=== PATIENT | female | born 2000 | race Caucasian/White ===

== ENCOUNTER → 2021-05-05 01:31 | Outpatient (CLI) | payer OTHER, SELFPAY ==
[2021-05-06 20:43] LABS: SARS-CoV-2 RNA PCR Negative
== END ==
PROVIDERS: PCP Family Medicine; Visit Provider Family Medicine
DX: J01.90 Acute sinusitis, unspecified (principal); Z20.822 Contact with and (suspected) exposure to COVID-19
CPT/HCPCS: C9803; U0003; U0005

== ENCOUNTER 2024-05-06 06:43 | Outpatient (RCR) | payer OTHER, SELFPAY ==
[2024-05-04 12:24] LABS: Glucose 1 Hour PP 50gm Dose 116 mg/dL
[2024-05-04 12:41] LABS: Hemoglobin A1C 4.6 % (<5.7)
[2024-05-04 13:00] LABS: Vitamin D 25 Hydroxy 40.7 ng/mL
[2024-05-04 13:05] LABS: HIV 1/2 Ab P24 Ag Result Negative (Negative)
[2024-05-05 12:11] LABS: Rapid Plasma Reagin Non-Reactive (NonReactive)
[2024-05-06] MEDS: RHO(D) IMMUNE GLOBULIN 300 MCG/2 ML SYRINGE IM (17:06)
== END 2024-05-06 07:00 | disposition home or self-care (01) ==
LOC: ANHLAB 06:43
PROVIDERS: PCP Nurse Practitioner Family; Visit Provider Obstetrics & Gynecology Gynecology
DX: Z29.13 Encounter for prophylactic Rho(D) immune globulin (principal); O36.0130 Maternal care for anti-D [Rh] antibodies, third trimester, not applicable or unspecified; Z11.4 Encounter for screening for human immunodeficiency virus [HIV]; Z11.3 Encounter for screening for infections with a predominantly sexual mode of transmission; E55.9 Vitamin D deficiency, unspecified; Z3A.00 Weeks of gestation of pregnancy not specified
CPT/HCPCS: 36415; 82306; 82947; 83036; 85461; 86592; 86703; 86850; 86900; 86901; 90384; 96372; G0432; J2790

== ENCOUNTER 2024-07-05 05:00 | Inpatient (IN) | payer OTHER, SELFPAY ==
[2024-07-05] VITALS (175 sets, daily range): BP systolic 76–156; BP diastolic 32–104; PULSE 58–157; TEMP 36.2–36.9; O2SAT 95–100; BMI 36.2
[2024-07-05 05:42] LABS: Basophils Percent Auto 0.3 % (0.2-1.2); Eosinophils Absolute Auto 0.2 K/mm3 (0-0.3); Eosinophils Percent Auto 1.8 % (0-4.4); Hematocrit 35.9 % (37.0-47.0); Hemoglobin 12.5 g/dL (12.0-15.0); Immature Granulocyte Absolute 0.06 K/mm3 (0.00-0.031); Immature Granulocyte Percent A 0.6 % (0-0.5); Lymphocytes Absolute Auto 2.61 K/mm3 (0.9-3.2); Lymphocytes Percent Auto 24.1 % (18.3-44.2); Mean Corpuscular HGB Conc 34.8 g/dl (32-36); Mean Corpuscular Hemoglobin 29.8 pg (26-34); Mean Corpuscular Volume 85.7 fl (80-100); Mean Platelet Volume 10.6 fl (7.4-10.4); Monocytes Absolute Auto 0.7 K/mm3 (0.1-0.6); Neutrophils Absolute Auto 7.3 K/mm3 (1.3-6.7); Neutrophils Percent Auto 67.2 % (45.5-73.1); Platelet Count Result 281 k/mm3 (150-375); Red Blood Count 4.19 M/mm3 (4.2-5.4); Red Cell Distribution Width 14.3 % (11.5-14.5); White Blood Count 10.9 K/mm3 (4.5-10.0)
--- NOTE | 2024-07-05 05:42 | LDADM ---
This patient, Sarah Beth Monaco, was admitted to Labor/Delivery/Recovery 105 on 07/05/24 at 05:00. Plans for labor, pain management and were discussed with patient. Patient/family oriented to hospital policies and general routines including ID bracelet, bed and alarms, visiting hours, pain management, procedures, bathroom and other care routines, personal items, smoking policy, room service/diet and guest tray routines, security routines, and visiting hours. Patient/Family are encouraged to report perceived risks to care and to ask questions if they do not understand what they are told or what they should do. See OBIX for further documentation.
[2024-07-05 05:59] LABS: Rapid Plasma Reagin Non-Reactive (NonReactive)
[2024-07-05] MEDS: LACTATED RINGERS 1,000 ML 125 ML IV CONT ×4 (06:05→21:52)
[2024-07-05] MEDS: OXYTOCIN 30 UNITS/NS 500 ML 30 UNITS/500 ML BAG 6 UNITS IV CONT (06:05)
[2024-07-05 06:34] LABS: HIV 1/2 Ab P24 Ag Result Negative (Negative)
--- NOTE | 2024-07-05 11:14 | WPDOBADMIT ---
Obstetrics - Admit Note Admission Note: record reviewed. No pertinent additions to the history and/or any subsequent changes in the physical findings that are not consistent with the expected course of the were found. Additions to the history and/or subsequent changes in the physical findings follow. Here for MIL for asymmetric growth with head sparing. Cervix now 5/70/-2 anterior. AROM with clear fluid. IUPC place. FHTs category I. Pitocin per protocol.
[2024-07-05] MEDS: CALCIUM CARBONATE (TUMS) 500 MG (200 MG ELEMENTAL) PO (11:24)
--- NOTE | 2024-07-05 13:30 | P.PNAN_ITS ---
Anes - Initial Pre Proc Eval Procedure: labor epidural Date/Time: 07/05/24 13:30 Surgeon: Duyen Rizo MD Pre Op Diagnosis: labor pain Pre Op Diagnosis: IOL Patient Data Age: 23 Gender: F Height: 1.7 m Weight: 105 kg Last Vital Signs Temp 36.3 C L 07/05/24 12:30 Pulse 82 07/05/24 13:15 BP 134/83 07/05/24 13:15 Pulse Ox 98 07/05/24 13:27 O2 Del Method Room Air 07/05/24 05:41 Allergies Allergy/AdvReac Type Severity Reaction Status Date / Time No Known Allergies Allergy Verified 06/18/24 15:29 Home Medications Medication Instructions Recorded Confirmed Type sertraline 25 mg tablet 25 mg PO DAILY #30 tabs 02/16/23 06/18/24 Rx sertraline 50 mg tablet 50 mg PO DAILY #30 tabs 02/21/24 06/18/24 Rx aspirin 81 mg tablet 81 mg PO DAILY 06/18/24 06/18/24 History cholecalciferol (vitamin D3) 125 250 mcg PO DAILY 06/18/24 07/05/24 History mcg (5,000 unit) tablet (Vitamin D3) vits no.126-ferrous fum 1 tablet PO DAILY 06/18/24 06/18/24 History 28 mg iron-folic acid 800 mcg tablet (Classic ) diphenhydramine HCl 50 mg/30 mL 50 mg PO HS PRN Sleep 07/05/24 07/05/24 History oral liquid pyridoxine (vitamin B6) 100 mg 100 mg PO DAILY 07/05/24 07/05/24 History tablet Laboratory Tests 07/05/24 05:13 WBC 10.9 H K/mm3 (4.5-10.0) RBC 4.19 L M/mm3 (4.2-5.4) Hgb 12.5 g/dL (12.0-15.0) Hct 35.9 L % (37.0-47.0) MCV 85.7 fl (80-100) MCH 29.8 pg (26-34) MCHC 34.8 g/dl (32-36) RDW 14.3 % (11.5-14.5) Plt Count 281 k/mm3 (150-375) MPV 10.6 H fl (7.4-10.4) Immature Gran % (Auto) 0.6 H % (0-0.5) Neut % (Auto) 67.2 % (45.5-73.1) Lymph % (Auto) 24.1 % (18.3-44.2) [place] % (Auto) 6.0 % (2.6-8.5) Eos % (Auto) 1.8 % (0-4.4) Baso % (Auto) 0.3 % (0.2-1.2) Lymph # (Auto) 2.61 K/mm3 (0.9-3.2) [place] # (Auto) 0.7 H K/mm3 (0.1-0.6) Eos # (Auto) 0.2 K/mm3 (0-0.3) Baso # (Auto) 0.0 K/mm3 (0.0-0.1) Abs Immat Gran (auto) 0.06 H K/mm3 (0.00-0.031) Absolute Neuts (auto) 7.3 H K/mm3 (1.3-6.7) Absolute Nucleated RBC 0.000 K/mm3 (0.0-0.012) Nucleated RBC % 0.0 % (0.0-0.2) RPR Non-reactive (NonReactive) HIV 1&2 Ab/P24 Ag 4thGn Negative (Negative) Blood Type A Negative Antibody Screen Positive Antibody Identification Passive Due to RH Imm Glob Antigen Identification TNP KEILA, IgG Interpret Neg KEILA, Poly Interpret Not Performed KEILA, Complement Interp Negative Patient hx anesthesia problems: none Family hx anesthesia problems: none Results Review: All pre-operative results and documents have been reviewed as part of the pre- operative evaluation. [facility] Past Medical History Medical History (Updated 06/05/23 @ 15:12 by Kirill Collado MD) Acute sinusitis, unspecified Allergic rhinitis Allergies Anxiety BMI 31.0-31.9,adult BMI 32.0-32.9,adult COVID-19 (06/04/23) Encounter to establish care Fatigue Influenza-like illness Lumbago Screening for diabetes mellitus Sprain of ankle, left Vitamin D deficiency Family History Family History (Updated 06/18/24 @ 15:36 by Brandi Santana RN) Father Heart disease Hypertension Thyroid disorder Pancreatitis Mother Hypertension Asthma Sibling Asthma Grandparent Diabetes mellitus Grandparent Diabetes mellitus Cerebrovascular accident Social History Social History Smoking status: Never smoker Second hand tobacco smoke exposure: No Alcohol intake: current Alcohol use details: socially Substance use: never Substance use type: does not use Do You Feel Safe in your Home?: Yes Lack of Transportation: No Lack of Food: Never True Current Housing: I Have Housing Concerned About Future Housing: No Difficulty Paying Gas/Electric Bills: No Difficulty Paying for Meds: No Currently Unemployed: No Education: Master's Degree or Higher Difficulty w/ Childcare or Family Care: No Spiritual care concerns: No Anes - Eval Final PreProcedure Day of Procedure 07/05/24 13:30 Patient weight: obese ASA classification: II Anesthetic plan: proceed Anesthesia type and monitoring: regional epidural and standard monitoring Results Review: All pre-operative results and documents have been reviewed as part of the pre- operative evaluation. Informed Consent: The patient's anesthetic plan and its attendant risks and benefits were discus sed with the patient/family/POA. Questions were solicited and answers provided to the satisfaction of the patient/family/POA.
--- NOTE | 2024-07-05 17:35 | P.PCNOB_ITS ---
OB - Vaginal Delivery Note Procedure Delivery date: 07/05/24 Events: Other (Asymmetric growth) Induction method: AROM and Per Pitocin Protocol Delivery monitor: External FHT and Internal Uterine Route of delivery: Episiotomy description: None Laceration Description: Periurethral (supraurethral 2nd degree) and Perineal - 2nd Degree Delivery repair: vicryl (3-0) Specimen: Yes (placenta) Quantitative Blood Loss (ml): 780 Anesthesia type: Epidural Disposition: Floor Complications: No immediate complications Narrative: The patient's laceration was above the urethra and very brisk bleeding. Most of the estimated blood loss is from the laceration. It was very difficult to visualize the urethra. A red rubber catheter was placed and the laceration above the urethra was repaired with 3-0 Vicryl on a sh needle . Once this bleeding was controlled, the patient had no further bleeding. [place] Baby Date of : 07/05/24 Gestational Age by Date: 38 (38 6/7) Infant gender: Female Weight (pounds): 6 Weight (ounces): 7 presentation: vertex position: Right Occiput Anterior Placenta delivery description: Spontaneous Cord Vessel Description: 3 Vessels and Delayed Cord Clamping score one minute: 9 score five minutes: 9
--- NOTE | 2024-07-05 17:38 | P.DS_ITS ---
DS: Admitting Diagnosis Discharge Date 07/07/24 Admitting Diagnosis IUP 38 6/7 wks Asymmetric growth DS: Discharge Diagnosis Discharge Diagnosis (1) (normal spontaneous vaginal delivery): Code(s): O80 - Encounter for full-term uncomplicated delivery Status: Acute (2) Anemia: Code(s): D64.9 - Anemia, unspecified Status: Acute Assessment and Plan: secondary to laceration OB - DS: Summary OB Procedures : NST and Ultrasound OB Procedures Intrapartum: Spontaneous Vag Delivery OB Procedures: : None Peripartum Data Infant Delivery Method: Natural Vaginal Laceration Description: Periurethral (supraurethral 2nd degree) and Perineal - 2nd Degree Episiotomy description: None complications: none Status at Discharge Functional status at discharge: independent ambulation Overall status at discharge: patient is progressing back to baseline Time Spent with Patient Time attestation: Total time spent providing and/or coordinating discharge services: DS: Data Data Completed and Pending Labs on day of discharge: Labs from last 24 hours 07/05/24 05:13 WBC 10.9 H RBC 4.19 L Hgb 12.5 Hct 35.9 L MCV 85.7 MCH 29.8 MCHC 34.8 RDW 14.3 Plt Count 281 MPV 10.6 H Immature Gran % (Auto) 0.6 H Neut % (Auto) 67.2 Lymph % (Auto) 24.1 [place] % (Auto) 6.0 Eos % (Auto) 1.8 Baso % (Auto) 0.3 Lymph # (Auto) 2.61 [place] # (Auto) 0.7 H Eos # (Auto) 0.2 Baso # (Auto) 0.0 Abs Immat Gran (auto) 0.06 H Absolute Neuts (auto) 7.3 H Absolute Nucleated RBC 0.000 Nucleated RBC % 0.0 RPR Non-reactive HIV 1&2 Ab/P24 Ag 4thGn Negative Blood Type A Negative Antibody Screen Positive Antibody Identification Passive Due to RH Imm Glob Antigen Identification TNP KEILA, IgG Interpret Neg KEILA, Poly Interpret Not Performed KEILA, Complement Interp Negative Discharge Plan Discharge Attending physician on discharge: Duyen Rizo Discharging Clinician: Duyen Rizo Anticipated Discharge Date/Time: 07/07/24 17:39 Patient Disposition: Home, Self-Care Activity: may shower and pelvic rest Diet: regular Discharge Instructions: Education: Mom and Baby Guide Given to: Mother Follow-Up: Call your delivering provider's office for an appointment to be seen in: 6 Weeks Mom and baby should come to the [facility] for the follow-up appointment. Appointment Date/Time: July 08, 2024 at 3:30 pm What to expect at your follow-up visit: Blood Pressure Check Physical Assessment Call [phone] if you are unable to keep your appointment time. BREAST CARE: * Wear a snug supportive bra. * For engorgement discomfort: Breast Feeding: * Apply warm moist washcloths * Express milk as needed to relieve engorgement * Wear loose clothing Bottle Feeding: * May apply ice packs * For sore nipples: * Identify correct latch-on * Apply warm moist washcloths before and after nursing * Air dry nipples after nursing * May apply Lansinoh cream to nipples EPISIOTOMY/PERINEAL CARE: * Until bleeding stops, use your pepito bottle after urinating * Change your pad frequently throughout the day * You may take sitz baths several times a day (fill your bathtub with warm water and soak for 20 minutes.) Do NOT bathe in the water * No tub baths until seen by your physician - You may shower ACTIVITY: * Rest as much as possible. * Do not exercise or lift anything heavier than your baby (such as laundry or other children.) * Avoid stairs or driving as much as possible. * Do not put anything into the vagina. No douching, tampons, or sexual activity until seen by physician. NOTIFY PHYSICIAN IF YOU HAVE ANY QUESTIONS OR IF ANY OF THE FOLLOWING SYMPTOMS OCCUR: * If your episiotomy or incision becomes red, swollen, or more painful than what you have experienced in the hospital. * If your vaginal bleeding becomes foul smelling. * If your vaginal bleeding becomes more heavy than a period or if your bleeding changes from pink to bright red. However, you may pass an occasional walnut- sized clot once or twice for the first week . * If you experience a sharp, shooting pain in you calves. * If you discover a hard, reddened area on your breast or if you experience flu- like symptoms. DIET: * Eat regular, well-balanced meals. * Drink plenty of fluids daily. If , drink to thirst. Patient Instructions: Vaginal Delivery (DC) Stand Alone Forms: General Discharge Information Follow-up/Referrals: Duyen Rizo MD [Physician] - 6 Weeks Discharge Medications: New norethindrone (contraceptive) 0.35 mg tablet 0.35 mg PO DAILY Qty: 84 3RF Continued sertraline 25 mg tablet 25 mg PO DAILY Qty: 30 11RF Rx Instructions: take with sertraline 50mg to equal 75mg daily cholecalciferol (vitamin D3) [Vitamin D3] 125 mcg (5,000 unit) Tablet 250 mcg PO DAILY Classic 28 mg iron- 800 mcg Tablet 1 tablet PO DAILY sertraline 50 mg tablet 50 mg PO DAILY Qty: 30 0RF Rx Instructions: needs appt for further refills Discontinued aspirin 81 mg Tablet 81 mg PO DAILY pyridoxine (vitamin B6) 100 mg Tablet 100 mg PO DAILY Unisom (diphenhydramine) 50 mg/30 mL Liquid 50 mg PO HS PRN (Reason: Sleep) Date of admission: 07/05/24 05:00 Primary Care Provider: Donna Scott Admitting Provider: Duyen Rizo Attending physician on admission: Duyen Rizo Condition: Stable
[2024-07-05] MEDS: OXYTOCIN 30 UNITS/NS 500 ML 30 UNITS/500 ML BAG 125 UNITS IV CONT (17:41)
[2024-07-05 20:04] LABS: Glucose Point of Care 123 mg/dl (65-105)
[2024-07-05] MEDS: LACTATED RINGERS 1,000 ML 999 ML IV CONT (20:20)
[2024-07-05 20:41] LABS: Hematocrit 27.1 % (37.0-47.0); Hemoglobin 9.3 g/dL (12.0-15.0)
[2024-07-05] MEDS: WITCH HAZEL 40 PADS 1 PAD TOPICAL (22:09)
[2024-07-05] MEDS: BENZOCAINE 20% AER SPR (*SP) 56 GM CAN 1 SPRAY TOPICAL (22:09)
[2024-07-05] MEDS: ACETAMINOPHEN 325 MG TABLET 650 MG PO (22:53)
[2024-07-06] VITALS (53 sets, daily range): BP systolic 108–142; BP diastolic 55–89; PULSE 91–120; RESP 16–18; TEMP 36.2–37.1; O2SAT 96–100
[2024-07-06] MEDS: LACTATED RINGERS 1,000 ML 125 ML IV CONT (05:36)
[2024-07-06 05:50] LABS: Hematocrit 20.4 % (37.0-47.0)
--- NOTE | 2024-07-06 06:30 | PM.OBPNVD ---
OB - PN: Subj Subjective Date/time seen: 07/06/24 06:30 Patient comments: other (unable to ambulate without dizziness/syncope last night) baby status: doing well OB - PN: Obj Data Labs 07/06/24 05:25 Labs: Laboratory Results - last 24 hr 07/05/24 07/05/24 07/05/24 05:13 20:01 20:22 Hgb 9.3 L D Hct 27.1 L POC Capillary Glucose 123 H HIV 1&2 Ab/P24 Ag 4thGn Negative Blood Type A Negative Antibody Screen Positive Antibody Identification Passive Due to RH Imm Glob Antigen Identification TNP KEILA, IgG Interpret Neg KEILA, Poly Interpret Not Performed KEILA, Complement Interp Negative 07/06/24 05:25 Hgb 7.0 L Hct 20.4 L* POC Capillary Glucose HIV 1&2 Ab/P24 Ag 4thGn Blood Type Antibody Screen Antibody Identification Antigen Identification KEILA, IgG Interpret KEILA, Poly Interpret KEILA, Complement Interp OB - PN A/P Assessment and Plan (1) Anemia: Code(s): D64.9 - Anemia, unspecified Status: Acute Assessment and Plan: s/p hemorrhage from laceration normal pp bleeding discussed transfusion and patient considering if dizziness with next attempt at ambulation Plan day: 1 Plan: routine care Time Spent With Patient Time: Total time spent is greater than 50% in coordination of care (as documented) at patient's floor/unit and/or counseling patient: Exam : Bimanual exam- vagina & uterus: other (Uterus firm, nt @U)
--- NOTE | 2024-07-06 08:35 | OBPPTRN ---
Patient transferred to post room #283 via wheelchair. Support person and baby present. Oriented to unit, room, information board, rooming in, admission packet and security measures. Patient verbalizes understanding.
[2024-07-06] MEDS: SODIUM CHLORIDE 0.9% IV 250 ML 30 ML IV CONT (08:54)
[2024-07-06] MEDS: DOCUSATE SODIUM 100 MG CAPSULE PO ×2 (10:37→18:30)
[2024-07-06] MEDS: MULTIVIT/MIN/PREN/FOL AC/IRON TABLET 1 TAB PO (10:37)
[2024-07-06] MEDS: POLYSACCHARIDE IRON COMPLEX 150 MG CAPSULE PO ×2 (10:37→18:30)
[2024-07-06] MEDS: SERTRALINE HCL 25 MG TABLET PO (10:37)
--- NOTE | 2024-07-06 12:15 | PC.NURSE ---
Pt assisted up to the bathroom, she voided 300cc's. she was not dizzy or lightheaded when she walked to the bathroom.
[2024-07-06] MEDS: IBUPROFEN 600 MG TABLET PO (18:36)
[2024-07-06] MEDS: ACETAMINOPHEN 325 MG TABLET 650 MG PO (18:37)
--- NOTE | 2024-07-07 05:24 | PM.OBPNVD ---
OB - PN: Subj Subjective Date/time seen: 07/07/24 05:24 Interval history: feeling better after transfusion Patient comments: no complaints and pain well controlled [place] baby status: doing well and nursing well OB - PN: Obj Data Labs 07/06/24 05:25 Labs: Laboratory Results - last 24 hr 07/05/24 07/06/24 05:13 05:25 Hgb 7.0 L Hct 20.4 L* Blood Type A Negative Antibody Screen Positive Antibody Identification Passive Due to RH Imm Glob Antigen Identification TNP KEILA, IgG Interpret Neg KEILA, Complement Interp Negative Crossmatch See Detail OB - PN A/P Plan day: 2 Plan: routine care, discharge home, follow up 6 weeks and other (plans micronor for bc) Time Spent With Patient Time: Total time spent is greater than 50% in coordination of care (as documented) at patient's floor/unit and/or counseling patient: Exam : Bimanual exam- vagina & uterus: other (Uterus firm, nt @U)
[2024-07-07 06:06] LABS: Hematocrit 29.2 % (37.0-47.0); Hemoglobin 10.4 g/dL (12.0-15.0)
[2024-07-07 07:15] VITALS: BP 133/89; PULSE 98; RESP 16; TEMP 37.4; O2SAT 98
[2024-07-07] MEDS: RHO(D) IMMUNE GLOBULIN 300 MCG/2 ML SYRINGE IM (12:08)
[2024-07-07] MEDS: MULTIVIT/MIN/PREN/FOL AC/IRON TABLET 1 TAB PO (12:10)
[2024-07-07] MEDS: SERTRALINE HCL 50 MG TABLET PO (12:10)
[2024-07-07] MEDS: SERTRALINE HCL 25 MG TABLET PO (12:10)
[2024-07-08 15:26] VITALS: BP 137/89; PULSE 76; RESP 18; TEMP 36.7; O2SAT 100
== END 2024-07-07 16:20 | disposition home or self-care (01) | DRG 807 ==
LOC: ANHLDR 17:40 → ANHOB2 07-06 08:56
PROVIDERS: Admitting Provider Obstetrics & Gynecology Gynecology; PCP Nurse Practitioner Family; Visit Provider Obstetrics & Gynecology Gynecology
DX: O70.1 Second degree perineal laceration during delivery (principal); Z37.0 Single live birth; O71.82 Other specified trauma to perineum and vulva; Z3A.38 38 weeks gestation of pregnancy
CPT/HCPCS: 36415; 36430; 82948; 85014; 85018; 85025; 85461; 86592; 86703; 86850; 86880; 86900; 86901; 86902; 86920; 88307; 90384; A9270; G0432; J2590; J2790; J2795; J7050; J7120; P9016

== ENCOUNTER 2024-08-07 06:52 | Emergency (ER) | payer OTHER, SELFPAY ==
[2024-08-07 07:00] VITALS: BP 117/79; PULSE 92; RESP 17; O2SAT 97
[2024-08-07 07:33] VITALS: BP 117/79; PULSE 83; RESP 17; TEMP 36.6; O2SAT 98
--- NOTE | 2024-08-07 07:34 | ED.GENADULT ---
HPI - General Adult General Chief complaint: Unspecified Stated complaint: dizzy Time Seen by Provider: 08/07/24 07:09 Source: patient and family Mode of arrival: ambulatory Limitations: no limitations History of Present Illness HPI narrative: 50 years old white female drove herself to the emergency room complaining of the feeling of passing out since she gave 1 month ago. Patient is telling me that she had vaginal delivery, vaginal tears, received 2 units of blood transfusion on July 06. She denies any fever, chills, nausea, vomiting, abdominal pain, active bleeding, chest pain or shortness of breath. Patient report the feeling of passing out worse when she stand up of for quite a bit of time, walking or doing activities, gets better laying down still. Related Data Home Medications ?Medication ?Instructions ?Recorded ?Confirmed ?Last Taken ?Type cholecalciferol (vitamin D3) 125 250 mcg PO DAILY 06/18/24 07/05/24 07/04/24 21:00 History mcg (5,000 unit) tablet (Vitamin D3) vits no.126-ferrous fum 1 tablet PO DAILY 06/18/24 06/18/24 07/04/24 21:00 History 28 mg iron-folic acid 800 mcg tablet (Classic ) Allergies Allergy/AdvReac Type Severity Reaction Status Date / Time No Known Allergies Allergy Verified 08/07/24 07:37 Review of Systems Review of Systems: All systems reviewed & are unremarkable except as noted in HPI and below PMFSH Past Medical History Medical History COVID-19 (06/04/23) BMI 31.0-31.9,adult Screening for diabetes mellitus Vitamin D deficiency Influenza-like illness Sprain of ankle, left BMI 32.0-32.9,adult Acute sinusitis, unspecified Lumbago Fatigue Allergic rhinitis Encounter to establish care Anxiety Allergies Family History Family History Father Heart disease Hypertension Thyroid disorder Pancreatitis Mother Hypertension Asthma Sibling Asthma Grandparent Diabetes mellitus Grandparent Diabetes mellitus Cerebrovascular accident Social History Social History Smoking status: Never smoker Second hand tobacco smoke exposure: No Alcohol intake: current Alcohol use details: socially Substance use: never Substance use type: does not use Do You Feel Safe in your Home?: Yes Lack of Transportation: No Lack of Food: Never True Current Housing: I Have Housing Concerned About Future Housing: No Difficulty Paying Gas/Electric Bills: No Difficulty Paying for Meds: No Currently Unemployed: No Education: Master's Degree or Higher Difficulty w/ Childcare or Family Care: No Spiritual care concerns: No Exam Narrative: General appearance: Well-developed, well-nourished Skin: Normal color Head: Normocephalic, nontraumatic Eyes: Clear conjunctiva ENT: Oropharynx normal, ears normal, nose normal Neck: Supple, nontender Chest and respiratory: Airway patent, no respiratory distress, no accessory muscle use Heart: Regular rate/rhythm Abdomen: Soft, nontender, no organomegaly, quiet bowel sounds Vascular: Normal peripheral pulses, normal capillary refill. Musculoskeletal: Normal range of motion, nontender back Neurologic: Alert and oriented ?3, [employer]CR[employer] is normal as tested, no gross motor deficit Course Vital Signs Vital signs: Vital Signs Temperature 36.6 C 08/07/24 07:33 Pulse Rate 83 08/07/24 07:33 Respiratory Rate 17 08/07/24 07:33 Blood Pressure 117/79 08/07/24 07:33 Pulse Oximetry 98 08/07/24 07:33 Oxygen Delivery Room Air 08/07/24 07:33 Temperature 36.6 C 08/07/24 07:33 Pulse Rate 106 H 08/07/24 09:04 Respiratory Rate 17 08/07/24 07:33 Blood Pressure 126/83 08/07/24 09:04 Pulse Oximetry 98 08/07/24 07:33 Oxygen Delivery Room Air 08/07/24 07:33 Medical Decision Making [facility] Narrative Medical decision making narrative: Patient presents with periodic feeling of passing out since giving 1 month ago. Vital signs are stable Physical examination showing extensive acne on the face and neck otherwise insignificant Differential diagnosis anemia, orthostatic hypotension, anxiety like symptom Blood workup today includes CBC, CMP, showed Urinalysis showed Vital Signs Vital Signs: Vital Signs Temperature 36.6 C 08/07/24 07:33 Pulse Rate 83 08/07/24 07:33 Respiratory Rate 17 08/07/24 07:33 Blood Pressure 117/79 08/07/24 07:33 Pulse Oximetry 98 08/07/24 07:33 Oxygen Delivery Room Air 08/07/24 07:33 Temperature 36.6 C 08/07/24 07:33 Pulse Rate 106 H 08/07/24 09:04 Respiratory Rate 17 08/07/24 07:33 Blood Pressure 126/83 08/07/24 09:04 Pulse Oximetry 98 08/07/24 07:33 Oxygen Delivery Room Air 08/07/24 07:33 Lab Data 08/07/24 08:04 08/07/24 08:04 Labs: Lab Results 08/07/24 Range/Units 08:04 WBC 8.7 (4.5-10.0) K/mm3 RBC 4.77 (4.2-5.4) M/mm3 Hgb 13.7 D (12.0-15.0) g/dL Hct 41.2 (37.0-47.0) % MCV 86.4 (80-100) fl MCH 28.7 (26-34) pg MCHC 33.3 (32-36) g/dl RDW 12.9 (11.5-14.5) % Plt Count 473 H D (150-375) k/mm3 MPV 9.1 (7.4-10.4) fl Immature Gran % (Auto) 0.3 (0-0.5) % Neut % (Auto) 56.3 (45.5-73.1) % Lymph % (Auto) 34.8 (18.3-44.2) % [place] % (Auto) 4.9 (2.6-8.5) % Eos % (Auto) 3.4 (0-4.4) % Baso % (Auto) 0.3 (0.2-1.2) % Lymph # (Auto) 3.04 (0.9-3.2) K/mm3 [place] # (Auto) 0.4 (0.1-0.6) K/mm3 Eos # (Auto) 0.3 (0-0.3) K/mm3 Baso # (Auto) 0.0 (0.0-0.1) K/mm3 Abs Immat Gran (auto) 0.03 (0.00-0.031) K/mm3 Absolute Neuts (auto) 4.9 (1.3-6.7) K/mm3 Absolute Nucleated RBC 0.000 (0.0-0.012) K/mm3 Nucleated RBC % 0.0 (0.0-0.2) % Sodium 137 (137-145) mmol/L Potassium 4.0 (3.4-5.0) mmol/L Chloride 107 (98-107) mmol/L Carbon Dioxide 26 (22-30) mmol/L Anion Gap 4 (4-12) mmol/L BUN 19 H (7-17) mg/dL Creatinine 0.90 (0.7-1.0) mg/dL Estim Creat Clear Calc 98 ml/min Estimated GFR > 60 (59 - ) Glucose 81 (65-110) mg/dL Calcium 9.0 (8.4-10.2) mg/dL Total Bilirubin 0.4 (0.2-1.3) mg/dL AST 40 H (14-36) U/L ALT 57 H (6-35) U/L Alkaline Phosphatase 104 (38-126) U/L Total Protein 7.0 (6.3-8.2) g/dL Albumin 4.2 (3.5-5.1) g/dL Urine Color Yellow (Yellow) Urine Appearance Cloudy H (Clear) Urine pH 5.5 (5.0-9.0) Ur Specific [place] 1.019 (1.001-1.035) Urine Protein Negative (Negative) mg/dL Urine Glucose (UA) Negative (Negative) mg/dL Urine Ketones Negative (Negative) mg/dL Ur Blood (Man) 2+ H (Negative) Urine Nitrate Negative (Negative) Urine Bilirubin Negative (Negative) Urine Urobilinogen 0.2 (<2.0) mg/dL Add Ur Microanalysis Reviewed Leukocyte Esterase Rfl 2+ H (Negative) JAKE/UL Urine RBC 6-10 H (0-2) /hpf Urine WBC 21-50 H (0-3) /hpf Ur Squamous Epith Cells Few (Few) /hpf Urine Bacteria 3+ H /hpf Urine Casts 0-2 Blood Type A Negative Antibody Screen Pending Discharge Plan Discharge Clinical Impression: Intermittent lightheadedness, Urinary tract infection Patient Disposition: Home, Self-Care Condition: Stable Instructions: Antibiotic Form, Urinary Tract Infection in Women (DC), Lightheadedness (ED) Additional Instructions: Return if symptoms are worsening , call your family physician for appointment, take Tylenol as as needed for aches and pain, continue home medications. Patient Language: Nauruan Prescriptions: New ciprofloxacin HCl [Cipro] 500 mg tablet 500 mg PO Q12H Qty: 14 0RF No Action sertraline 25 mg tablet 25 mg PO DAILY Qty: 30 11RF Rx Instructions: take with sertraline 50mg to equal 75mg daily cholecalciferol (vitamin D3) [Vitamin D3] 125 mcg (5,000 unit) Tablet 250 mcg PO DAILY Classic 28 mg iron- 800 mcg Tablet 1 tablet PO DAILY norethindrone (contraceptive) 0.35 mg tablet 0.35 mg PO DAILY Qty: 84 3RF sertraline 50 mg tablet 50 mg PO DAILY Qty: 30 0RF Rx Instructions: needs appt for further refills Follow-up/Referrals: Donna Scott NP [Primary Care Provider] -
[2024-08-07 08:06] VITALS: BP 107/73; PULSE 74; RESP 12; O2SAT 100
[2024-08-07 08:12] LABS: Basophils Percent Auto 0.3 % (0.2-1.2); Eosinophils Absolute Auto 0.3 K/mm3 (0-0.3); Eosinophils Percent Auto 3.4 % (0-4.4); Hematocrit 41.2 % (37.0-47.0); Hemoglobin 13.7 g/dL (12.0-15.0); Immature Granulocyte Absolute 0.03 K/mm3 (0.00-0.031); Immature Granulocyte Percent A 0.3 % (0-0.5); Lymphocytes Absolute Auto 3.04 K/mm3 (0.9-3.2); Lymphocytes Percent Auto 34.8 % (18.3-44.2); Mean Corpuscular HGB Conc 33.3 g/dl (32-36); Mean Corpuscular Hemoglobin 28.7 pg (26-34); Mean Corpuscular Volume 86.4 fl (80-100); Mean Platelet Volume 9.1 fl (7.4-10.4); Monocytes Absolute Auto 0.4 K/mm3 (0.1-0.6); Monocytes Percent Auto 4.9 % (2.6-8.5); Neutrophils Absolute Auto 4.9 K/mm3 (1.3-6.7); Neutrophils Percent Auto 56.3 % (45.5-73.1); Platelet Count Result 473 k/mm3 (150-375); Red Blood Count 4.77 M/mm3 (4.2-5.4); Red Cell Distribution Width 12.9 % (11.5-14.5); White Blood Count 8.7 K/mm3 (4.5-10.0)
[2024-08-07 08:21] LABS: Alanine Aminotransferase 57 U/L (6-35); Albumin Level 4.2 g/dL (3.5-5.1); Alkaline Phosphatase 104 U/L (38-126); Anion Gap 4 mmol/L (4-12); Aspartate Amino Transferase 40 U/L (14-36); Bilirubin,Total 0.4 mg/dL (0.2-1.3); Blood Urea Nitrogen 19 mg/dL (7-17); Carbon Dioxide 26 mmol/L (22-30); Chloride 107 mmol/L (98-107); Estimated CRCL calculation 98 ml/min; Estimated Glomerular Filt Rate > 60; Glucose 81 mg/dL (65-110); Sodium 137 mmol/L (137-145)
[2024-08-07 08:54] LABS: Add Urine Microscopic? YES; Appearance Urine Cloudy (Clear); Bacteria Urine 3+ /hpf; Bilirubin Urine Negative (Negative); Blood Urine 2+ (Negative); Color Urine Yellow (Yellow); Glucose Urine UA Negative (Negative); Ketones Urine Negative (Negative); Leukocyte Esterase Ur 2+ LEU/UL (Negative); Need Manual Microscopic Reviewed; Nitrate Urine Negative (Negative); Non Pathogenic Casts 0-2; Protein Urine Negative (Negative); Specific Grav Ur 1.019 (1.001-1.035); Squamous Epithelial Cell Urine Few /hpf (Few); Urobilinogen Urine 0.2 mg/dL (<2.0); WBC Urine 21-50 /hpf (0-3); pH Urine 5.5 (5.0-9.0)
[2024-08-07 08:57] VITALS: BP 117/86; PULSE 96; RESP 13; O2SAT 100
[2024-08-07 09:03] VITALS: BP 114/86; BP 122/81; PULSE 89; PULSE 92
[2024-08-07 09:04] VITALS: BP 126/83; PULSE 106
== END 2024-08-07 09:49 | disposition home or self-care (01) ==
PROVIDERS: Emergency Provider Emergency Medicine; PCP Nurse Practitioner Family
DX: N39.0 Urinary tract infection, site not specified (principal); R42 Dizziness and giddiness; E55.9 Vitamin D deficiency, unspecified; Z86.16 Personal history of COVID-19
CPT/HCPCS: 36415; 80053; 81001; 85025; 86850; 86880; 86900; 86901; 87086; 96374; 99284; J0696

== ENCOUNTER 2024-10-14 09:54 | Outpatient (CLI) | payer OTHER, SELFPAY ==
[2024-10-14 10:58] LABS: Alanine Aminotransferase 37 U/L (6-35); Albumin Level 4.3 g/dL (3.5-5.1); Alkaline Phosphatase 90 U/L (38-126); Aspartate Amino Transferase 30 U/L (14-36); Bilirubin,Total 0.6 mg/dL (0.2-1.3); Cholesterol 205 mg/dL (0-200); HDL Direct 43 mg/dL; Triglycerides 134 mg/dL (<150)
[2024-10-14 11:08] LABS: Beta HCG Quantitative < 2.39 mIU/ML
[2024-10-14 11:09] LABS: LDL Cholesterol Direct 109 mg/dL
--- OUTSIDE RECORDS SUMMARY | 2024-10-14 12:48 | XMS_ITS | Clinical Summary ---
Author Organization [facility] Address [address] [place] [phone] Phone Care Team Providers Care Financial Service Rep Name Role Phone Unavailable Primary Care Provider Unavailabl e Encounters Date Type Department Care Team Description 09/24/2024 External Device Data [facility] ABSTRACTION Provider, Abstract 09/18/2024 External Device Data [facility] ABSTRACTION Provider, Abstract 09/18/2024 External Device Data [facility] ABSTRACTION Provider, Abstract from Last 3 Months Social History Tobacco Use Types Packs/Day Years Used Date Smoking Tobacco: Never Assessed Comments Unknown Sex and Gender Information Value Date Recorded Sex Assigned at Not on file Legal Sex Female 4:03 PM CDT Gender Identity Not on file Sexual Orientation Not on file Plan of Treatment Health Maintenance Due Date Last Done Comments HPV VACCINES (1 - 3-dose series) 2013 DTAP/TDAP/TD VACCINES (1 - Tdap) 2017 HEPATITIS B VACCINES (1 of 3 - 19+ 3-dose series) 2017 CERVICAL CANCER SCREENING 2019 INFLUENZA VACCINE (#1) 2024 PNEUMOCOCCAL VACCINE 0-64 YEARS Aged Out No longer eligible based on patient's age to complete this topic Insurance [facility] OPEN ACCESS HMO [facility] [id number]
--- OUTSIDE RECORDS SUMMARY | 2024-10-14 12:48 | XMS_ITS | Referral Summary ---
Author Organization [facility] Address [address] [place] [address] Care Team Providers Care Joss House Keeper Name Role Phone Kirill Collado MD Primary Care Provider +1 -[phone] Allergies No known active allergies Medications norethindrone (MICRONOR) 0.35 mg tablet Take 1 tablet (0.35 mg total) by mouth daily 05/13/2023 Active sertraline (ZOLOFT) 50 mg tablet Take 1 tablet (50 mg total) by mouth daily 05/15/2023 Active Social History Tobacco Use Types Packs/Day Years Used Date Smoking Tobacco: Never Smokeless Tobacco: Never Alcohol Use Standard Drinks/Week Comments Not Currently 0 (1 standard drink = 0.6 oz pur e alcohol) Personal Safety Answer Date Recorded Getting School Help Needed Not on file 06/04 Comments Unknown Sex and Gender Information Value Date Recorded Sex Assigned at Not on file 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 Gender Identity Not on file Sexual Orientation Not on file Last Filed Vital Signs Vital Sign Reading Time Taken Comments Blood Pressure 100/69 06/04/2023 1:00 PM CDT Pulse 107 06/04/2023 1:00 PM CDT Temperature 36.8 C (98.2 F) 06/04/2023 9:33 AM CDT Respiratory Rate 18 06/04/2023 1:00 PM CDT Oxygen Saturation 97% 06/04/2023 12:30 PM CDT Inhaled Oxygen Concentration - - Weight 93.4 kg (206 lb) 06/04/2023 9:33 AM CDT Height 170.2 cm (5' 7 ) 06/04/2023 9:33 AM CDT Body Mass Index 32.26 06/04/2023 9:33 AM CDT Plan of Treatment Not on file Insurance [facility] EMPLOYEE Georgina Goodman PLANS Address: [facility] [id number] [place] [phone] [facility] [employer] PLANS Address: [facility] [id number] [place] [address] [facility] EMPLOYEE HEALTH PLANS Address: [facility] [id number] [place] [address] Care Teams Joss House Keeper Relationship Specialty Start Date End Date Kirill Collado MD [address] [address] PCP - General 04/01/20
--- OUTSIDE RECORDS SUMMARY | 2024-10-14 12:48 | XMS_ITS | Clinical Summary ---
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 Gender Identity Not on file Sexual Orientation Not on file Obstetrics History Last Filed Vital Signs Vital Sign Reading [...] 06/04/2023 9:33 AM CDT Plan of Treatment Health Maintenance Due Date Last Done Comments Cervical Cancer Screening 1998 Depression Screening 1998 Hepatitis C Screening 1998 DTaP/Tdap/Td Vaccine (1 - Tdap) 2009 Varicella Vaccines (1 of 2 - 13+ 2-dose series) 2011 HPV Vaccines (1 - 3-dose series) 2013 Hepatitis B Screening 2016 Regular Well Visit/Exam 18-64 2016 Influenza Vaccine (#1) 2024 09/14/2020 Pneumococcal vaccine <65 Aged Out No longer eligible based on patient's age to complete this topic Insurance Lala LalaNA [employer]IGNA Care Teams Planning Analyst Relationship Specialty Start Date End Date Kirill Collado MD [address] [address] PCP - General 04/01/20
== END 2024-10-14 09:55 | disposition home or self-care (01) ==
PROVIDERS: PCP Family Medicine
DX: L70.0 Acne vulgaris (principal)
CPT/HCPCS: 36415; 80061; 80076; 84702

== ENCOUNTER 2024-11-19 11:54 | Outpatient (CLI) | payer OTHER, SELFPAY ==
[2024-11-19 13:20] LABS: Strep Group A RT-PCR NOT DETECTED (Negative)
[2024-11-19 13:32] LABS: Influenza A QL RT-PCR Negative (Negative); Influenza B QL RT-PCR Negative (Negative); RSV RNA, RT-PCR Negative (Negative); SARS-CoV-2 RNA PCR Negative (Negative)
--- OUTSIDE RECORDS SUMMARY | 2024-11-19 14:02 | XMS_ITS | Referral Summary ---
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 Gender Identity Not on file Sexual Orientation [...] of Treatment Not on file Insurance [facility] EMPLOYEE [employer] PLANS Address: [facility] [id number] [place] [phone] [facility] [employer] PLANS Address: [facility] [address] [place] [address] [facility] EMPLOYEE HEALTH PLANS Address: [facility] [address] [place] [address] Care Teams Blueprinting Machine Operator Relationship Specialty Start Date End Date Kirill Collado MD [id number] [address] PCP - General 04/01/20
--- OUTSIDE RECORDS SUMMARY | 2024-11-19 14:02 | XMS_ITS | Clinical Summary ---
Author Organization [facility] Address [address] [place] [phone] Phone Care Team Providers Care Waste Cotton Cleaner Name Role Phone Unavailable Primary Care Provider Unavailabl e Encounters Date Type Department Care Team Description 11/02/2024 External Device Data ST[facility] ABSTRACTION Provider, Abstract 11/01/2024 External Device Data ST[facility] ABSTRACTION Provider, Abstract 10/22/2024 External Device Data [facility] ABSTRACTION Provider, Abstract 10/16/2024 External Device Data [facility] ABSTRACTION Provider, Abstract 10/15/2024 External Device Data [facility] ABSTRACTION Provider, Abstract 09/24/2024 External Device Data ST[facility] ABSTRACTION Provider, [...] 3-dose series) 2017 CERVICAL CANCER SCREENING 2019 PAP SMEAR 2019 PAP SMEAR 2019 INFLUENZA VACCINE (#1) 2024 PNEUMOCOCCAL VACCINE 0-49 YEARS Aged Out No longer eligible based on patient's age to complete this topic Insurance CIG OPEN ACCESS HMO [facility] [id number]
--- OUTSIDE RECORDS SUMMARY | 2024-11-19 14:02 | XMS_ITS | Clinical Summary ---
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
== END 2024-11-19 11:55 | disposition home or self-care (01) ==
PROVIDERS: PCP Nurse Practitioner Family; Visit Provider Nurse Practitioner Family
DX: J02.9 Acute pharyngitis, unspecified (principal); Z20.822 Contact with and (suspected) exposure to COVID-19
CPT/HCPCS: 87637; 87651

== ENCOUNTER 2025-01-06 15:46 | Outpatient (CLI) | payer OTHER, SELFPAY ==
--- OUTSIDE RECORDS SUMMARY | 2025-01-06 15:51 | XMS_ITS | Clinical Summary ---
Author Organization [facility] Address [address] [place] [address] Phone Care Team Providers Care Regional Intermodal Truck Driver Name Role Phone Unavailable Primary Care Provider Unavailabl e Encounters Date Type Department Care Team Description 11/26/2024 External Device Data ST[facility] ABSTRACTION Provider, Abstract 11/02/2024 External Device Data ST[facility] ABSTRACTION Provider, [...] (1 of 3 - 19+ 3-dose series) 09/29 CERVICAL CANCER SCREENING 2019 HPV/Cotest (21-29) 2019 PAP SMEAR 2019 INFLUENZA VACCINE (#1) 2024 [facility] [id number]
--- OUTSIDE RECORDS SUMMARY | 2025-01-06 15:51 | XMS_ITS | Referral Summary ---
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 Gender Identity Not on file Sexual Orientation [...] of Treatment Not on file Insurance [facility] EMPLOYEE [employer] PLANS Address: [facility] [id number] [place] [phone] [facility] [employer] PLANS Address: [facility] [address] [place] [address] [facility] EMPLOYEE HEALTH PLANS Address: [facility] [id number] [place] [address] Care Teams Excellence Manager Relationship Specialty Start Date End Date Kirill Collado MD [address] [address] PCP - General 04/01/20
--- OUTSIDE RECORDS SUMMARY | 2025-01-06 15:51 | XMS_ITS | Clinical Summary ---
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 Gender Identity Not on file Sexual Orientation [...] Regular Well Visit/Exam 18-64 2016 Influenza Vaccine (Season Ended) 2025 09/14/19 21 Pneumococcal vaccine <65 Aged Out No longer eligible based on patient's age to complete this topic Insurance [employer] [facility]PL[facility]EE HEALTH PLANS Address: [facility] [address] [place] [address] [employer] [facility] EMPLOYEE HEALTH PLANS Address: [address] [place] [address] [employer] [facility] EMPLOYEE HEALTH PLANS Address: [facility] [id number] [place] [phone] Care Teams Environmental Protection Inspector Relationship Specialty Start Date End Date Kirill Collado MD [address] [address] PCP - General 04/01/20
[2025-01-06 19:59] LABS: Alanine Aminotransferase 31 U/L (6-35); Aspartate Amino Transferase 39 U/L (14-36); Triglycerides 428 mg/dL (<150)
== END 2025-01-06 15:47 | disposition home or self-care (01) ==
PROVIDERS: PCP Nurse Practitioner Family; Visit Provider Nurse Practitioner Family
DX: R42 Dizziness and giddiness (principal); L70.0 Acne vulgaris; K13.0 Diseases of lips; L85.3 Xerosis cutis; Z79.899 Other long term (current) drug therapy
CPT/HCPCS: 36415; 84443; 84450; 84460; 84478

== ENCOUNTER → 2025-02-04 10:07 | Outpatient (CLI) | payer OTHER, SELFPAY ==
--- NOTE | ~2025-02-04 | XR_ITS ---
Lumbosacral Spine: AP, oblique, and lateral views Clinical History: Pain Findings: The normal lordotic curve is maintained. The vertebral bodies and posterior elements are i ntact. The intervertebral disc spaces are preserved. The sacroiliac joints are normally outlined. Impression: No significant abnormality. Reviewed, dictated and finalized at [facility]. Impression: No significant abnormality.
--- OUTSIDE RECORDS SUMMARY | 2025-02-04 11:03 | XMS_ITS | Clinical Summary ---
Author Organization [facility] Address [address] [place] [phone] Phone Care Team Providers Care Letter Of Credit Clerk Name Role Phone Unavailable Primary Care Provider [...] SMEAR 2019 INFLUENZA VACCINE (#1) 2024 Insurance [facility] OPEN ACCESS HMO [facility] [id number]
--- OUTSIDE RECORDS SUMMARY | 2025-02-04 11:03 | XMS_ITS | Clinical Summary ---
Author Organization [facility] Address [address] [place] [address] Care Team Providers Care Shank Faker Name Role Phone Kirill Collado MD Primary Care Provider [phone] [phone] Allergies No known active allergies Medications norethindrone [...] on file Legal Sex Female 1:18 AM FULL TIME Gender Identity Not on file Sexual Orientation [...] 9:33 AM CDT Height 170.2 cm (5' 7) 06/04/2023 9:33 AM CDT Body Mass Index [...] patient's age to complete this topic Insurance [employer] [facility] EMPLOYEE HEALTH PLANS Address: [facility] [address] [place] [address] [employer] [facility] EMPLOYEE HEALTH PLANS Address: [address] [place] [address] [employer] [facility] EMPLOYEE HEALTH PLANS Address: [facility] [id number] [place] [address] Care Teams Shank Faker Relationship Specialty Start Date End Date Kirill Collado MD [address] [id number] PCP - General 04/01/20
--- OUTSIDE RECORDS SUMMARY | 2025-02-04 11:03 | XMS_ITS | Referral Summary ---
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 Gender Identity Not on file Sexual Orientation [...] of Treatment Not on file Insurance [facility] EMPLOYEE [employer] PLANS Address: [facility] [id number] [place] [phone] [facility] [employer] PLANS Address: [facility] [address] [place] [address] [employer] [facility] EMPLOYEE HEALTH PLANS Address: [facility] [address] [place] [address] Care Teams Traffic Personnel Supervisor Relationship Specialty Start Date End Date Kirill Collado MD [address] [address] PCP - General 04/01/20
== END ==
PROVIDERS: PCP Nurse Practitioner Family; Visit Provider Nurse Practitioner Family
DX: M54.50 Low back pain, unspecified (principal); M79.605 Pain in left leg
CPT/HCPCS: 72110

== ENCOUNTER 2025-02-18 09:31 | Outpatient (CLI) | payer OTHER, SELFPAY ==
[2025-02-18 10:47] LABS: Aspartate Amino Transferase 39 U/L (14-36)
[2025-02-18 10:48] LABS: Alanine Aminotransferase 28 U/L (6-35); Triglycerides 245 mg/dL (<150)
== END 2025-02-18 09:32 | disposition home or self-care (01) ==
PROVIDERS: PCP Nurse Practitioner Family
DX: L70.0 Acne vulgaris (principal); K13.0 Diseases of lips; L85.3 Xerosis cutis; Z79.899 Other long term (current) drug therapy
CPT/HCPCS: 36415; 84450; 84460; 84478

== ENCOUNTER 2025-03-12 10:00 | Outpatient (CLI) | payer OTHER, SELFPAY ==
--- OUTSIDE RECORDS SUMMARY | 2025-03-12 10:12 | XMS_ITS | Clinical Summary ---
Author Organization [facility] Address [address] [place] [phone] Phone Care Team Providers Care Case Checker Name Role Phone Unavailable Primary Care Provider Unavailabl e Encounters Date Type Department Care Team Description 02/25/2025 External Device Data [facility] ABSTRACTION Provider, Abstract [...] 2019 PAP SMEAR 2019 INFLUENZA VACCINE (#1) 2025 Insurance [facility] OPEN ACCESS HMO [facility] [id number]
--- OUTSIDE RECORDS SUMMARY | 2025-03-12 10:12 | XMS_ITS | Clinical Summary ---
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 Gender Identity Not on file Sexual Orientation [...] Well Visit/Exam 18-64 2016 Influenza Vaccine (#1) 2025 09/14/2020 Pneumococcal vaccine <65 Aged Out No longer eligible based on patient's age to complete this topic Insurance [employer] [facility] EMPLOYEE HEALTH PLANS Address: [facility] [address] [place] [address] [employer] [facility] EMPLOYEE HEALTH PLANS Address: [address] [place] [address] CIGNA [facility] EMPLOYEE HEALTH PLANS Address: [facility] [id number] [place] [address] Care Teams Blasting Contract Man Relationship Specialty Start Date End Date Kirill Collado MD [address] [id number] PCP - General 04/01/20
--- OUTSIDE RECORDS SUMMARY | 2025-03-12 10:12 | XMS_ITS | Referral Summary ---
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
--- NOTE | 2025-03-12 10:34 | ECG_ITS ---
Test Date: 2025-03-12 10:43:23 Measurements Intervals [place] Rate: 101 P: 49 CT: 140 QRS: 54 QRSD: 88 T: 2 QT: 334 QTc: 433 Interpretive Statements SINUS TACHYCARDIA NONSPECIFIC ST-T WAVE CHANGES ABNORMAL RHYTHM ECG No previous ECG available for comparison Electronically Signed On 03-12-2025 12:50:01 CDT by Rajan Alcaraz M.D.
[2025-03-12 11:18] LABS: Hematocrit 43.2 % (37.0-47.0); Hemoglobin 14.2 g/dL (12.0-15.0); Immature Granulocyte Percent A 0.2 % (0-0.5); Lymphocytes Absolute Auto 3.04 K/mm3 (0.9-3.2); Mean Corpuscular HGB Conc 32.9 g/dl (32-36); Mean Corpuscular Hemoglobin 27.2 pg (26-34); Mean Corpuscular Volume 82.6 fl (80-100); Nucleated Red Blood Cells Absolute Auto 0.000 K/mm3 (0.0-0.012); Nucleated Red Blood Cells Perc 0.0 % (0.0-0.2); Platelet Count Result 511 k/mm3 (150-375); Red Blood Count 5.23 M/mm3 (4.2-5.4); White Blood Count 8.3 K/mm3 (4.5-10.0)
[2025-03-12 11:27] LABS: Alanine Aminotransferase 43 U/L (6-35); Albumin Level 4.5 g/dL (3.5-5.1); Alkaline Phosphatase 107 U/L (38-126); Anion Gap 11 mmol/L (4-12); Aspartate Amino Transferase 41 U/L (14-36); Bilirubin,Total 0.4 mg/dL (0.2-1.3); Blood Urea Nitrogen 14 mg/dL (7-17); Calcium 9.3 mg/dL (8.4-10.2); Carbon Dioxide 23 mmol/L (22-30); Chloride 106 mmol/L (98-107); Cholesterol 232 mg/dL (0-200); Estimated Glomerular Filt Rate > 60; Glucose 84 mg/dL (65-110); HDL Direct 32 mg/dL; Potassium 3.9 mmol/L (3.4-5.0); Sodium 140 mmol/L (137-145); Total Protein 7.9 g/dL (6.3-8.2); Triglycerides 298 mg/dL (<150)
[2025-03-12 11:30] LABS: Add Urine Microscopic? YES; Appearance Urine Cloudy (Clear); Glucose Urine UA Negative (Negative); Leukocyte Esterase Ur Negative LEU/UL (Negative); Need Manual Microscopic Reviewed; Nitrate Urine Negative (Negative); Non Pathogenic Casts 0-2; Specific Grav Ur 1.029 (1.001-1.035)
[2025-03-12 12:16] LABS: Thyroid Stimulating Hormone Reflex 1.490 uIU/mL (0.465-4.68)
[2025-03-12 12:37] LABS: Vitamin B12 209.0 pg/mL (239-931)
== END 2025-03-12 10:01 | disposition home or self-care (01) ==
PROVIDERS: PCP Nurse Practitioner Family; Visit Provider Nurse Practitioner Family
DX: R94.31 Abnormal electrocardiogram [ECG] [EKG] (principal); R53.83 Other fatigue; E78.5 Hyperlipidemia, unspecified; D64.9 Anemia, unspecified
CPT/HCPCS: 36415; 80053; 80061; 81001; 82607; 82746; 84443; 85025; 93005